=== PATIENT | female | born 1980 | race African-American/Black ===

== ENCOUNTER → 2019-03-12 | Day surgery (SDC) | payer MEDICAID ==
[~2019-03-12] VITALS: Ht 165.1 cm; Wt 119.7 kg
[~2019-03-12] MED LIST: APIX5TAB PO; BACITRACIN INJ 50000 UNIT VIAL ONE; GABA300C10 PO; GLYCOPYRROLATE 0.2 MG/ML 1ML VIAL ONE; HYDR-531 PO; HYDROmorphone HCL 2 MG/ML VL IV PRN; LIDOCAINE 1% (LOCAL ANESTH.) PF 5ml SDV ONE; METOCLOPRAMIDE HCL 5MG/ml INJ 2ml VIAL ONE; MIDAZOLAM HCL 1MG/1ML-2 ML VIAL ONE; NALOXONE HCL 0.4 MG/ML VIAL IV PRN; NEOSTIGMINE 1 MG/ML INJ (10mg/10ML VIAL) ONE; ONDANSETRON HCL 4 MG/2 ML VIAL IV PRN; PROPOFOL 10 MG/ML 20 ML IV ONE; ROCURONIUM 10MG/ML 10ML VIAL IV ONE; SUCCINYLCHOLINE CHLORIDE 20 MG/ML 10ML VIAL IV ONE; VANCOMYCIN HCL 1000 MG VL ONE; ceFAZolin 1GM VL ONE; ceFAZolin 1GM/50ML 100 ML IV ONE; fentaNYL CITRATE 100 MCG/2 ML VL ONE
[2019-03-12] MEDS: HYDROmorphone HCL 2 MG/ML VL IV PRN ×3 (11:27→11:51)
[2019-03-12 12:13] VITALS: BP 109/59
== END | disposition home or self-care (01) ==
LOC: SUR 08:45
PROVIDERS: ATTEND Orthopaedic Surgery Adult Reconstructive Orthopaedic Surgery
DX: L97.328 Non-pressure chronic ulcer of left ankle with other specified severity (principal); E66.9 Obesity, unspecified; F17.210 Nicotine dependence, cigarettes, uncomplicated; Z68.41 Body mass index [BMI] 40.0-44.9, adult; Z98.891 History of uterine scar from previous surgery; Z79.899 Other long term (current) drug therapy
CPT/HCPCS: 11042; 36415; 84702; 87070; 87075; 87205; 97607; J0330; J0690; J1170; J2250; J2704; J2765; J3010; J3370